=== PATIENT | male | born 1945 | race Caucasian/White ===

== ENCOUNTER 2016-12-27 11:32 | Emergency (ER) | payer BC ==
--- NOTE | 2016-12-27 12:46 | UC ---
Hip/Pelvis Pain - HPI Summary HPI Summary: 71 yo male fell off a ladder (5 feet) hit AC unit occurred 4 days ago - History Of Current Complaint Chief Complaint: UCTrauma Stated Complaint: LEG INJURY Time Seen by Provider: 12/27/16 12:34 Hx Obtained From: Patient Onset/Duration: Sudden Onset Severity Initially: Moderate Severity Currently: Moderate Pain Intensity: 6 Pain Scale Used: 0-10 Numeric Character Of Pain: Throbbing, Spasmodic Aggravating Factor(s): Movement, Weight Bearing Alleviating Factor(s): Rest Associated Signs And Symptoms: Positive: Swelling, Bruising - Allergies/Home Medications Allergies/Adverse Reactions: Allergies Allergy/AdvReac Type Severity Reaction Status Date / Time No Known Allergies Allergy Verified 12/27/16 12:05 Home Medications: Home Medications Lisinopril TAB* [Prinivil TAB 10 MG*] 10 mg PO DAILY 12/27/16 [History Confirmed 12/27/16] Sertraline* [Zoloft*] 25 mg PO DAILY 12/27/16 [History Confirmed 12/27/16] PMH/Surg Hx/FS Hx/Imm Hx Previously Healthy: Yes - Surgical History Surgical History: Yes Surgery Procedure, Year, and Place: RIGHT FOOT. RIGHT FOREARM. LEFT THUMB - Family History Known Family History: Positive: Hypertension - Social History Alcohol Use: Occasionally Substance Use Type: None Smoking Status (MU): Never Smoked Tobacco - Immunization History Most Recent Influenza Vaccination: 03/2012 Most Recent Tetanus Shot: 2009 Most Recent Pneumonia Vaccination: 2010 Review of Systems Constitutional: Negative Skin: Bruising Eyes: Negative ENT: Negative Respiratory: Negative Cardiovascular: Negative Gastrointestinal: Negative Genitourinary: Negative Motor: Negative Neurovascular: Negative Musculoskeletal: Myalgia Neurological: Negative Psychological: Negative Is Patient Immunocompromised?: No All Other Systems Reviewed And Are Negative: Yes Physical Exam Triage Information Reviewed: Yes Appearance: Well-Appearing, No Pain Distress, Well-Nourished Vital Signs: Initial Vital Signs Temp 97.8 F 12/27/16 12:02 Pulse 83 12/27/16 12:02 Resp 18 12/27/16 12:02 BP 153/84 12/27/16 12:02 Pulse Ox 97 12/27/16 12:02 Eyes: Positive: Conjunctiva Clear ENT: Negative: Hearing grossly normal, Nasal congestion, Tonsillar exudate, Trismus, Muffled/hoarse voice Neck: Positive: Supple, Nontender, No Lymphadenopathy Respiratory: Positive: Lungs clear, Normal breath sounds, No respiratory distress Cardiovascular: Positive: RRR, No Murmur Musculoskeletal: Positive: Strength Intact, ROM Intact, Other: - see image Neurological: Positive: Alert Psychological Exam: Normal Skin Exam: Normal Hip Injury Course/Dx - Differential Dx/Diagnosis Provider Diagnoses: right hip contusion. traumatic right greater trochanteric bursitis Discharge - Discharge Plan Condition: Stable Disposition: HOME Patient Education Materials: Hip Bursitis (ED), Hematoma (ED) Referrals: Nicole العلي MD [Primary Care Provider] - Vinod Webb MD [Medical Doctor] - 5 Days Additional Instructions: ice twice daily advil or aleve or tylenol for pain recheck later in week if not better Images Front/Back of Body, Lg ([place]): 1 - tender greater troch 2 - ecchymosis
--- NOTE | 2016-12-27 14:06 | RAD ---
INDICATION: Right hip injury. COMPARISON: There are no prior studies available for comparison. TECHNIQUE: An AP view of the pelvis and frontal and lateral views of the right hip were obtained. FINDINGS: The bones are in normal alignment. No fracture is seen. There is mild to moderate bilateral osteoarthritic change in the hips. IMPRESSION: NO EVIDENCE FOR FRACTURE, IF THE PATIENT'S SYMPTOMS PERSIST RECOMMEND FOLLOW-UP IMAGING.
[2016-12-27 14:21] VITALS: BP 127/76
--- NOTE | 2016-12-27 14:24 | RAD ---
INDICATION: Right femur injury. TECHNIQUE: 2 views of the right femur were obtained. FINDINGS: The bones are normal alignment. No fracture is seen. IMPRESSION: NO EVIDENCE FOR FRACTURE.
== END 2016-12-27 14:28 | disposition home or self-care (01) ==
LOC: UCEAST 11:32
DX: S70.01XA Contusion of right hip, initial encounter (principal); W11.XXXA Fall on and from ladder, initial encounter; Y92.9 Unspecified place or not applicable; M70.61 Trochanteric bursitis, right hip
CPT/HCPCS: 99212; G0463

== ENCOUNTER 2018-05-29 14:53 | Emergency (ER) | payer BC, MEDICARE, OTHER ==
[2018-05-29 15:15] VITALS: BP 126/73
--- NOTE | 2018-05-29 17:31 | UC ---
Shoulder Pain HPI - HPI Summary HPI Summary: 2 WEEKS OF PROGRESSIVELY WORSENING RIGHT POSTERIOR SHOULDER PAIN. PATIENT DENIES ANY DISCRETE TRAUMA OR INJURY. 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 PAIN IS WORSE WITH OVERHEAD REACHING. NO SWELLING. NO NUMBNESS OR TINGLING. - History of Current Complaint Chief Complaint: UCUpperExtremity Stated Complaint: BACK PAIN, AND SHOULDER PAIN Time Seen by Provider: 05/29/18 16:32 Hx Obtained From: Patient Onset/Duration: Gradual Onset, Lasting Weeks, Still Present Timing: Constant Severity Initially: Moderate Severity Currently: Moderate Location Of Pain: Is Discrete @ - RIGHT POSTERIOR SHOULDER Pain Intensity: 3 Pain Scale Used: 0-10 Numeric Character: Sharp Aggravating Factor(s): Movement Alleviating Factor(s): Rest Associated Signs And Symptoms: Positive: Negative Related History: Dominant Hand Right - Allergies/Home Medications Allergies/Adverse Reactions: Allergies Allergy/AdvReac Type Severity Reaction Status Date / Time No Known Allergies Allergy Verified 05/29/18 15:15 PMH/Surg Hx/FS Hx/Imm Hx Endocrine History: Diabetes Cardiovascular History: Hypertension - Surgical History Surgical History: Yes Surgery Procedure, Year, and Place: RIGHT FOOT. RIGHT FOREARM. LEFT THUMB - Family History Known Family History: Positive: Hypertension - Social History Alcohol Use: Occasionally Substance Use Type: None Smoking Status (MU): Former Smoker - Immunization History Most Recent Influenza Vaccination: 03/2012 Most Recent Tetanus Shot: 2009 Most Recent Pneumonia Vaccination: 2010 Review of Systems All Other Systems Reviewed And Are Negative: Yes Constitutional: Positive: Negative Skin: Positive: Negative Respiratory: Positive: Negative Cardiovascular: Positive: Negative Gastrointestinal: Positive: Negative Musculoskeletal: Positive: Arthralgia. Negative: Decreased ROM, Myalgia Physical Exam Triage Information Reviewed: Yes Appearance: Well-Appearing, No Pain Distress, Well-Nourished Vital Signs: Initial Vital Signs Temp 97.6 F 05/29/18 15:12 Pulse 78 05/29/18 15:12 Resp 18 05/29/18 15:12 BP 126/73 05/29/18 15:12 Pulse Ox 98 05/29/18 15:12 Vital Signs Reviewed: Yes Eyes: Positive: Conjunctiva Clear ENT: Positive: Hearing grossly normal Neck: Positive: Supple Respiratory: Positive: No respiratory distress, No accessory muscle use Cardiovascular: Positive: Pulses Normal Abdomen Description: Positive: Soft Musculoskeletal: Positive: ROM Intact, No Edema, Other: - TTP RIGHT POSTERIOR SHOULDER AND OVERLYING RIGHT SCAPULA. EQUIVOCAL ROTATOR CUFF TESTING Neurological: Positive: Alert Psychological: Positive: Age Appropriate Behavior Skin: Negative: Rashes Diagnostics - Radiology RIGHT SHOULDER XRAYS Radiology Interpretation Completed By: Radiologist Summary of Radiographic Findings: OSTEOARTHRITIS. NO ACUTE OSSEOUS INJURY Shoulder Course/Dx - Course Course Of Treatment: OSTEOARTHRITIS ON X-RAY TODAY. PATIENT TO FOLLOW-UP WITH ORTHO OR PCP TO DISCUSS FURTHER EVALUATION OF ROTATOR CUFF AND POSSIBLE MRI. - Differential Dx/Diagnosis Provider Diagnosis: Tendinopathy of rotator cuff Discharge - Sign-Out/Discharge Documenting (check all that apply): Patient Departure All imaging exams completed and their final reports reviewed: Yes - Discharge Plan Condition: Stable Disposition: HOME Patient Education Materials: Rotator Cuff Tendinitis (ED) Referrals: Saad Butts MD [Medical Doctor] - 1 Week Nicole العلي MD [Primary Care Provider] - 1 Week Additional Instructions: CONSIDER ROTATOR CUFF PATHOLOGY TO EXPLAIN YOUR SYMPTOMS. X-RAY TODAY SHOWS OSTEOARTHRITIS BUT IS OTHERWISE UNREMARKABLE. AVOID ACTIVITIES THAT EXACERBATE YOUR SYMPTOMS INCLUDING OVERHEAD ACTIVITIES AND HEAVY LIFTING. FOLLOW-UP WITH YOUR PCP OR ORTHOPEDICS WITHIN THE NEXT 1-2 WEEKS FOR FURTHER EVALUATION. YOU MAY BENEFIT FROM MORE ADVANCED IMAGING. - Billing Disposition and Condition Condition: STABLE Disposition: Home
== END 2018-05-29 17:48 | disposition home or self-care (01) ==
LOC: UCEAST 14:53
DX: M75.81 Other shoulder lesions, right shoulder (principal); I10 Essential (primary) hypertension; E11.9 Type 2 diabetes mellitus without complications; Z87.891 Personal history of nicotine dependence
CPT/HCPCS: 99211; G0463

== ENCOUNTER 2019-03-15 12:59 | Emergency (ER) | payer MEDICARE ==
--- OUTSIDE RECORDS SUMMARY | 2019-03-15 13:07 | XMS REPORT | Continuity of Care Document ---
:1945 External Reference #:[id number] Author Name Amalia Solorzano MD (transmitted by agent of provider Kaya Bell) Address [address], [place] [address] Care Team Providers Name Role Phone Nicole العلي MD - Internal Medicine Care Team Information [employer] [phone] Problems Active Problems Provider Date Localized superficial swelling of skin Amalia Solorzano MD Onset: 02/23/2019 Localized, primary osteoarthritis Amalia Solorzano MD Onset: 02/23/2019 Social History Type Date Description Comments Sex Unknown ETOH Use Occasionally consumes alcohol Tobacco Use Start: Unknown Patient has never smoked Smoking Status Reviewed: 02/23/19 Patient has never smoked Allergies, Adverse Reactions, Alerts Description No Known Drug Allergies Medications Active Medications SIG Qnty Indications Ordering Provider Date Amlodipine Besylate 1 by mouth every Unknown 5mg day Tablets Sertraline HCL Unknown Pravastatin Sodium 1 by mouth every Unknown 10mg day Tablets Acetaminophen 1-2 tabs 3x a Unknown 500mg Tablets day as needed Valsartan 1 by mouth every Unknown 160mg Tablets day Immunizations Description No Information Available Vital Signs Date Vital Result Comment 02/23/2019 1:55pm Height 68 inches 5'8" Weight 218.00 lb Heart Rate 60 /min BP Systolic 158 mmHg BP Diastolic 82 mmHg Respiratory Rate 14 /min Pain Level 3 BMI (Body Mass Index) 33.1 kg/m2 12/27/2018 2:29pm Height 68 inches 5'8" Weight 228.00 lb Heart Rate 78 /min BP Systolic 146 mmHg BP Diastolic 82 mmHg Respiratory Rate 12 /min Pain Level 4 BMI (Body Mass Index) 34.7 kg/m2 Results Description No Information Available Procedures Description No Information Available Medical Devices Description No Information Available Encounters Type Date Location Provider Dx Diagnosis Office Visit 12/27/2018 [facility] Amalia Solorzano MD M17.11 Unilateral primary 2:00p at [place] osteoarthritis, right knee M17.12 Unilateral primary osteoarthritis, left knee R22.41 Localized swelling, mass and lump, right lower limb Assessments Date Code Description Provider 02/23/2019 M17.0 Bilateral primary osteoarthritis of knee Amalia Solorzano MD 02/23/2019 R22.41 Localized swelling, mass and lump, right lower Amalia Solorzano MD limb 12/27/2018 M17.11 Unilateral primary osteoarthritis, right knee Amalia Solorzano MD 12/27/2018 M17.12 Unilateral primary osteoarthritis, left knee Amalia Solorzano MD 12/27/2018 R22.41 Localized swelling, mass and lump, right lower Amalia Solorzano MD limb Plan of Treatment Future Appointment(s):03/16/2019 1:45 pm - Amalia Solorzano MD at [facility] at [id number]/23/2019 - Amalia Solorzano, MDM17.0 Bilateral primary osteoarthritis of kneeFollow up:Follow up: Awaiting approval for viscosupplementation - PT at homeR22.41 Localized swelling, mass and lump, right lower limbFollow up:Follow up: US for evaluation Functional Status Description No Information Available Mental Status Description No Information Available Referrals Description No Information Available
--- NOTE | 2019-03-15 13:17 | UC ---
Throat Pain/Nasal Gallo HPI - HPI Summary HPI Summary: 73 yo male presents with cough. He tells me that over the last 3 days he has had a non-productive cough and feels a pain in his "lungs" when he coughs. He does not smoke. Has not been taking anything OTC for his symptoms. Denies fever , chills, sinus symptoms, SOB, chest pain. - History of Current Complaint Stated Complaint: COUGH SORE THROAT CHEST CONGESTION Time Seen by Provider: 03/15/19 13:16 Hx Obtained From: Patient Severity: Mild Pain Intensity: 3 Pain Scale Used: 0-10 Numeric - Allergies/Home Medications Allergies/Adverse Reactions: Allergies Allergy/AdvReac Type Severity Reaction Status Date / Time No Known Allergies Allergy Verified 03/15/19 13:18 Home Medications: Home Medications Glucosamine Sulfate [Glucosamine Sulfate Maxim] 1,000 mg PO DAILY 03/15/19 [ History Confirmed 03/15/19] Ubidecarenone [Coq10] 100 mg PO DAILY 03/15/19 [History Confirmed 03/15/19] PMH/Surg Hx/FS Hx/Imm Hx Endocrine History: Diabetes, Dyslipidemia Cardiovascular History: Hypertension Respiratory History: Pulmonary Embolism - Surgical History Surgical History: Yes Surgery Procedure, Year, and Place: RIGHT FOOT. RIGHT FOREARM. LEFT THUMB - Family History Known Family History: Positive: Hypertension - Social History Lives: With Family Alcohol Use: Occasionally Substance Use Type: None Smoking Status (MU): Former Smoker - Immunization History Most Recent Influenza Vaccination: 03/2012 Most Recent Tetanus Shot: 2009 Most Recent Pneumonia Vaccination: 2010 Review of Systems All Other Systems Reviewed And Are Negative: No Constitutional: Positive: Negative Skin: Positive: Negative Eyes: Positive: Negative ENT: Positive: Negative Respiratory: Positive: Cough Cardiovascular: Positive: Negative Gastrointestinal: Positive: Negative Neurological: Positive: Negative Psychological: Positive: Negative Physical Exam - Summary Physical Exam Summary: GENERAL: NAD. WDWN. No pain distress. SKIN: No rashes, sores, lesions, or open wounds. HEENT: Head: AT/NC Eyes: EOM intact. Conjunctiva clear without inflammation or discharge. Ears: Hearing grossly normal. TMs intact, no bulging, erythema, or edema. Nose: Nasal mucosa pink and moist. NTTP maxillary and frontal sinus. Throat: Posterior oropharynx without exudates, erythema, or tonsillar enlargement. Uvula midline. NECK: Supple. Nontender. No lymphadenopathy. CHEST: CTAB. No accessory muscle use. Breathing comfortably and in no distress. CV: RRR. Pulses intact. Cap refill <2seconds NEURO: Alert. PSYCH: Age appropriate behavior. Triage Information Reviewed: Yes Vital Signs: Vital Signs: Temp Pulse Resp BP Pulse Ox 97.7 F 73 16 155/86 95 03/15/19 13:14 03/15/19 13:14 03/15/19 13:14 03/15/19 13:14 03/15/19 13:14 Vital Signs Reviewed: Yes Diagnostics - Radiology CXR Radiology Interpretation Completed By: Radiologist Summary of Radiographic Findings: IMPRESSION: NO EVIDENCE FOR ACTIVE CARDIOPULMONARY DISEASE. Throat Pain/Nasal Course/Dx - Course Course Of Treatment: CXR as above. Exam WNL and afebrile. Discussed viral vs bacterial with pt and he prefers to try supportive care and will f/u if symptoms do not improve or if they worsen - Differential Dx/Diagnosis Provider Diagnosis: Cough Discharge ED - Sign-Out/Discharge Documenting (check all that apply): Patient Departure All imaging exams completed and their final reports reviewed: Yes - Discharge Plan Condition: Stable Disposition: HOME Prescriptions: Benzonatate CAP* [Tessalon 100 MG CAP*] 100 mg PO TID PRN #21 cap PRN Reason: Cough Codeine Phosphate/Guaifenesin [Guaifen-Codeine 100-10 mg/5 ml] 5 ml PO BEDTIME PRN #35 ml MDD 5ml PRN Reason: Cough Patient Education Materials: Acute Cough (ED) Referrals: Nicole العلي MD [Primary Care Provider] - Additional Instructions: Your symptoms are likely from a viral infection. Viral infections do not respond to antibiotics and are limited to the treatment of symptoms. Viral infections typically run their course in 7-10 days. Drink plenty of fluids, especially if you are running any fever. Use salt water gargles several times a day. Take over the counter acetaminophen (Tylenol) or ibuprofen (Advil, Motrin) according to directions as needed for pain or fever. You may also use Chloraseptic spray or Cepacol lonzenges according to directions which contain a numbing medication and can provide some temporary relief from a sore throat. Return here or follow up with your primary care provider in 7 days if symptoms persist. - Billing Disposition and Condition Condition: STABLE Disposition: Home
[2019-03-15 13:18] VITALS: BP 155/86
== END 2019-03-15 13:52 | disposition home or self-care (01) ==
LOC: UCEAST 12:59
DX: R05 Cough (principal); E11.9 Type 2 diabetes mellitus without complications; I10 Essential (primary) hypertension; Z87.891 Personal history of nicotine dependence
CPT/HCPCS: 71046; 99212; G0463

== ENCOUNTER 2022-04-06 09:56 | Observation (INO) ==
[2022-04-06 12:46] LABS: ABS Lymphocytes 1.1 10^3/ul (1.0-4.8); ABS Monocytes 0.6 10^3/ul (0-0.8); ABS Neutrophils 4.6 10^3/ul (1.5-7.7); Eosinophil % 0.5 %; Hematocrit 44 % (42-52); Hemoglobin 15.1 g/dL (14.0-18.0); Lymphocyte % 17.6 %; Mean Corpuscular HGB Conc 35 g/dL (31-36); Mean Corpuscular Hemoglobin 32 pg (27-31); Mean Corpuscular Volume 93 fL (80-94); Mean Platelet Volume 8.3 fL (7.4-10.4); Platelet Count 192 10^3/uL (150-450); Red Cell Distribution Width 13 % (10-15); White Blood Count 6.4 10^3/uL (3.5-10.8)
[2022-04-06 12:57] LABS: INR 1.17 (0.88-1.18)
[2022-04-06 13:35] LABS: Albumin 4.4 g/dL (3.2-5.2); C Reactive Protein 8.02 mg/L (<8.01); Calcium 9.6 mg/dL (8.6-10.3); Creatinine, Serum 0.66 mg/dL (0.67-1.17); Globulin 2.2 g/dL (2-4); Phosphorus 3.3 mg/dL (2.5-5.0); Potassium 4.5 mmol/L (3.5-5.0); Total Bilirubin 0.8 mg/dL (0.2-1.0); Total Protein 6.6 g/dL (6.4-8.9); eGFR CKD-EPI 97.2 (>60)
[2022-04-06 14:25] LABS: High Sensitivity Troponin 1 Hr 5 pg/mL (<20)
[2022-04-06] MEDS ORDERED: Enoxaparin 40 MG/0.4 ML SYR SUBCUT SCH (17:00)
[2022-04-06] MEDS: Lidocaine PATCH 5% PATCH TRANSDERM SCH (18:35)
[2022-04-06] MEDS ORDERED: CMCS: Pravastatin 20 mg TAB (NF) PO SCH (22:00)
[2022-04-07 07:39] LABS: ABS Eosinophils 0.1 10^3/ul (0-0.6); ABS Lymphocytes 1.4 10^3/ul (1.0-4.8); ABS Monocytes 0.5 10^3/ul (0-0.8); ABS Neutrophils 3.5 10^3/ul (1.5-7.7); Eosinophil % 1.6 %; Hematocrit 43 % (42-52); Hemoglobin 14.7 g/dL (14.0-18.0); Mean Corpuscular HGB Conc 34 g/dL (31-36); Mean Corpuscular Hemoglobin 32 pg (27-31); Mean Corpuscular Volume 93 fL (80-94); Mean Platelet Volume 8.2 fL (7.4-10.4); Nucleated Red Blood Cells % 0.1; Platelet Count 192 10^3/uL (150-450); Red Blood Count 4.65 10^6 /uL (4.18-5.48); Red Cell Distribution Width 13 % (10-15); White Blood Count 5.5 10^3/uL (3.5-10.8)
[2022-04-07 08:11] LABS: Calcium 9.1 mg/dL (8.6-10.3); Creatinine, Serum 0.75 mg/dL (0.67-1.17); Potassium 4.2 mmol/L (3.5-5.0); eGFR CKD-EPI 93.5 (>60)
[2022-04-07] MEDS: Lidocaine PATCH 5% PATCH TRANSDERM SCH (08:28)
[2022-04-07] MEDS ORDERED: Lidocaine 1% MPF 5 ML VIAL ONE (13:15)
[2022-04-07 16:32] VITALS: BP 150/57
== END 2022-04-07 17:42 | disposition home or self-care (01) ==
LOC: EDHOLD 09:56 → ED 09:56 → SUATTDRO 16:22 → MEDTELE 19:48
PROVIDERS: ADMIT Internal Medicine; ATTEND Internal Medicine